=== PATIENT | male | born 1950 | race Caucasian/White ===

== ENCOUNTER → 2016-11-28 | Outpatient (CLI) | payer BC, OTHER ==
[2015-03-10 11:05] VITALS: BP 126/85
[~2016-11-28] MED LIST: LISI40TA PO; MELA3TAB2 PO; SERT50TA PO; SIMV80TA3 PO
--- NOTE | 2016-11-28 15:15 | RAD ---
Ultrasound evaluation of the abdominal aorta. 11/28/2016 Comparison study: None Indication: Unspecified abdominal pain. Other, dorsalgia Discussion: Ultrasound evaluation of the abdominal aorta was performed. Static images were submitted to PACS. The abdominal aorta is normal in caliber. Maximum diameter of the proximal abdominal aorta by ultrasound is 1.6 cm. Maximum diameter of the mid abdominal aorta is 1.7 cm. Maximal diameter of the distal abdominal aorta is 1.9 cm. No evidence of aneurysm dissection, or significant atherosclerotic vascular disease is appreciated. Impression: No sonographic evidence of abdominal aortic aneurysm
== END | disposition home or self-care (01) ==
LOC: US 07:46
PROVIDERS: ATTEND Family Medicine
DX: C64.2 Malignant neoplasm of left kidney, except renal pelvis (principal); N18.3 Chronic kidney disease, stage 3 (moderate); R53.1 Weakness; G47.37 Central sleep apnea in conditions classified elsewhere; R80.8 Other proteinuria; E78.1 Pure hyperglyceridemia
CPT/HCPCS: 76770